=== PATIENT | female | born 1995 | race Caucasian/White ===

== ENCOUNTER 2017-10-06 15:44 | Emergency (ER) | payer OTHER ==
[2017-10-06 15:54] VITALS: BP 120/73
[2017-10-06] MEDS ORDERED: Albuterol/Ipratropium NEB.SOL* Albuterol 2.5 MG/Ipratropium 0.5 MG 3 ML INH ONE (16:35)
--- NOTE | 2017-10-06 16:55 | UC ---
Walt Rosenberg Gabriel, scribed for Syeda Aldridge MD on 10/06/17 at 1636 . FLU HPI - HPI Summary HPI Summary: This patient is a 22 year old F presenting to [facility] with a chief complaint of illnes since 09/27/17. PT resports had head congestion, slight cough and "cold" Pt states started to feel better. Pt states 2 days ago developed myalgia, rhinorrhea, nasal congestion, on and off fever, chest congestion, productive cough, and chills. Pt states feels fatigue. The symptoms began suddenly and she has been taking Mucinex and acetaminophen. Patient goes to [place] [employer] and believes she has had exposure to sick persons wih flu. No garcias, vision changes. slight wheeze, non productive cough. Patients medication reviewed during this visit. - History of Current Complaint Chief Complaint: UCRespiratory Stated Complaint: CHEST CONGESTION, AND COUGH Time Seen by Provider: 10/06/17 15:56 Hx Obtained From: Patient Hx Last Menstrual Period: september 2017 Onset/Duration: Lasting Days - 8, Still Present Severity Currently: Moderate Severity Initially: Moderate Pain Intensity: 0 Pain Scale Used: 0-10 Numeric Associated Signs & Symptoms: Positive: Fever, Myalgia, Nasal Congestion Related Hx: Possible Flu/Infectious Exposure - Allergy/Home Medications Allergies/Adverse Reactions: Allergies Allergy/AdvReac Type Severity Reaction Status Date / Time MS Amoxicillin Allergy Severe Rash Verified 10/06/17 15:54 [From MS Augmentin] MS Clavulanic Acid Allergy Severe Rash Verified 10/06/17 15:54 [From MS Augmentin] PMH/Surg Hx/FS Hx/Imm Hx Previously Healthy: Yes Other History Of: Negative For: Hepatitis B, Hepatitis C - Surgical History Surgical History: Yes Surgery Procedure, Year, and Place: T&A as a child - Family History Known Family History: Positive: Cardiac Disease, Hypertension Negative: Diabetes, Renal Disease, Respiratory Disease, Seizure Disorder - Social History Occupation: Student Lives: Dormitory/Roommates Alcohol Use: Weekly - twice a week Substance Use Type: None Smoking Status (MU): Never Smoked Tobacco Review of Systems Constitutional: Fever, Chills ENT: Nasal Discharge, Sinus Congestion Respiratory: Cough, Other - chest congestion Musculoskeletal: Myalgia All Other Systems Reviewed And Are Negative: Yes Physical Exam Triage Information Reviewed: Yes Appearance: No Pain Distress, Well-Nourished, Other: - tired appearing, dry hacking cough Vital Signs: Initial Vital Signs Temp 98.9 F 10/06/17 15:48 Pulse 61 10/06/17 15:48 Resp 18 10/06/17 15:48 BP 120/73 10/06/17 15:48 Pulse Ox 99 10/06/17 15:48 Vital Signs Reviewed: Yes Eye Exam: Normal Eyes: Positive: Conjunctiva Clear ENT Exam: Normal ENT: Positive: Hearing grossly normal, Pharynx normal, Other - + turbinates inflammed and boggy + PND no exudate, no erytnema uvula midlind Dental Exam: Normal Neck exam: Normal Neck: Positive: Supple, Nontender, No Lymphadenopathy Respiratory Exam: Normal Respiratory: Positive: Chest non-tender, Wheezing, Other: - coarse, haking cough no accessory muscles scattered wheeze Cardiovascular Exam: Normal Cardiovascular: Positive: RRR, No Murmur Abdominal Exam: Normal Abdomen Description: Positive: Nontender, No Organomegaly, Soft Bowel Sounds: Positive: Present Musculoskeletal Exam: Normal Musculoskeletal: Positive: Strength Intact Neurological Exam: Normal Neurological: Positive: Alert Psychological Exam: Normal Psychological: Positive: Normal Response To Family Skin Exam: Normal Diagnostics - Radiology CXR Radiology Interpretation Completed By: Radiologist - NO EVIDENCE FOR ACTIVE CARDIOPULMONARY DISEASE. physician has reviewed this radiology report and agrees. Re-Evaluation - Re-Evaluation First Eval Re-Evaluation Time: 17:22 Change: Improved Comment: Patient has improved after Albuterol treatment. Flu Course/Dx - Course Course Of Treatment: When I offered to speak the to patients mother about her treatment and she declined. Pt with sudden myualgia, reported rigor, cough and congestion x 2 days. pt college student. symptomatic tx. pt with wheeze on exam. will give neb. cxr. presumed influenza. tamiflu. mdi. hydrate. secretion precautions - Differential Dx/Diagnosis Provider Diagnoses: influenza Discharge - Discharge Plan Condition: Stable Disposition: HOME Prescriptions: Albuterol HFA INHALER* [Ventolin HFA Inhaler*] 1 puff INH Q4H PRN #1 mdi PRN Reason: wheeze Oseltamivir CAP* [Tamiflu CAP*] 75 mg PO DAILY #10 cap Spacer/Aerosol-Holding Chamber [Aerochamber Mv] 1 mis PO Q4HR PRN #1 mis PRN Reason: wheeze Patient Education Materials: Influenza (ED) Forms: *Gen. Provider Communication, *School Release Referrals: [facility] [Medical Doctor] - No Primary Care Phys,NOPCP [Primary Care Provider] - Additional Instructions: - Stay well hydrated. Drink plenty of non-alcoholic, non-caffinated beverages. - These infections are spread by oral secretions. Do not share eating or drinking utensils. Frequent hand washing is important. Clean items that may get your secretions on them such as cell phones, ipads, computer mouse, television remotes. Once you start to feel better, change your toothbrush and your pillow - Take Tamiflu 2 times as prescribed until gone -Use inhaler, 2 puffs every 4 hours today and tomorrow, then every 4 hours as needed - Okay to alternate ibuprofen (Advil, Motrin) and Tylenol every 3 hours for pain or fever. Take with food. Do NOT take for more than 4-5 days. - Contact [place] [employer] [facility] to discuss your diagnosis and plan for classes. Contact [facility], return here , or go to the emergency department with questions or concerns The documentation as recorded by the Walt monson Gabriel accurately reflects the service I personally performed and the decisions made by me, Syeda Aldridge MD.
--- NOTE | 2017-10-06 17:01 | RAD ---
INDICATION: Cough, fever and wheeze. COMPARISON: There are no prior studies available for comparison. TECHNIQUE: Dual-energy PA and lateral views of the chest were obtained. FINDINGS: The heart is within normal limits in size. Mediastinal and hilar contours appear within normal limits. The lungs are clear. No pleural effusion is present. IMPRESSION: NO EVIDENCE FOR ACTIVE CARDIOPULMONARY DISEASE.
[2017-10-06] MEDS ORDERED: Oseltamivir CAP* 75 MG CAP PO ONE (17:21)
== END 2017-10-06 17:42 | disposition home or self-care (01) ==
LOC: UCEAST 15:44
DX: J11.1 Influenza due to unidentified influenza virus with other respiratory manifestations (principal); Z88.3 Allergy status to other anti-infective agents
CPT/HCPCS: 71046; 99212; A9270-GY; G0463